=== PATIENT | female | born 1960 | race Caucasian/White ===

== ENCOUNTER 2022-11-08 10:23 | Day surgery (SDC) | payer BC, SELFPAY ==
[2022-11-08 10:52] VITALS: BP 143/83; PULSE 74; RESP 16; TEMP 36.3; O2SAT 99
--- NOTE | 2022-11-08 11:00 | W.ANESPRE ---
General Info Date of Service Date Performed: 11/08/22 Height: 5 ft 4 in Weight: 78.7 kg Body Mass Index (BMI): 29.7 Surgical Procedure: Operation Date: 11/08/22 12:10 Proposed Procedure Side Surgeon p Cataract Extraction with IOL Implant Left Long Hobson MD Meds Allergies and Home Medications Allergies Allergy/AdvReac Type Severity Reaction Status Date / Time codeine AdvReac Intermediate Other (See Verified 11/08/22 10:44 Comment) diclofenac AdvReac Intermediate Other (See Verified 11/08/22 10:44 Comment) zolpidem AdvReac Intermediate Other (See Verified 11/08/22 10:44 Comment) Home Medication Medication Instructions Recorded acetaminophen 325 mg tablet 325 mg PO Q4H PRN 11/07/22 cholecalciferol (vitamin D3) 50 50 mcg PO DAILY 11/07/22 mcg (2,000 unit) capsule (Vitamin D3) diphenhydramine 12.5 2 tab PO Q4H PRN 11/07/22 mg-acetaminophen 325 mg tablet famotidine 20 mg tablet 20 mg PO DAILY 11/07/22 meloxicam 15 mg tablet 15 mg PO DAILY 11/07/22 multivitamin 1 tab PO DAILY 11/07/22 Current Visit Medications: Current Medications Generic Name Dose Route Start Last Admin Trade Name Freq PRN Reason Stop Dose Admin Acetaminophen 1,000 mg 11/08/22 06:00 Acetaminophen 500 Mg Tab PO Q4H PRN PRN Miscellaneous Medication 0 ml 11/08/22 06:00 Prednisolone 1%, Moxifloxacin 0.5%, Nepafenac 0.1% 5ml Btl OS DIRECTED [facility] Miscellaneous Medication 0 ml 11/08/22 06:00 Tropicam./Phenyleph. (1/2.5%) 5 Ml Btl OS DIRECTED SHRADDHA Tetracaine HCl 0 ml 11/08/22 06:00 Tetracaine 0.5% 4 Ml Btl OS DIRECTED SHRADDHA PFSH Active Problems Active Problems: Problem Status Onset Code LPRD (laryngopharyngeal reflux disease) K21.9 Nuclear sclerotic cataract of left eye H25.12 Posterior subcapsular age-related cataract of left eye H25.042 Medical History Medical History Chronic wrist pain Degenerative joint disease of spinal facet joint Dyspepsia Globus sensation Mild vitamin D deficiency Ovarian cyst Shoulder bursitis Spondylarthritis Surgical History Surgical History Hx of bilateral salpingo-oophorectomy Hx of colonoscopy Tobacco Smoking/Tobacco Use Status: Never Alcohol Alcohol Intake: current Alcohol intake frequency: 0-2 drinks per day Substance Use Substance use: Never Substance use type: does not use Vital Signs and Lab Results Vital Signs Most Recent Vital Signs in EMR: Most Recent Vital Signs Temp Pulse Resp BP Pulse Ox 36.3 C L 74 16 143/83 H 99 11/08/22 10:52 11/08/22 10:52 11/08/22 10:52 11/08/22 10:52 11/08/22 10:52 Lab Results Blood Type / Crossmatch: No Data to Display Complete Blood Count: No Data to Display Complete Metabolic Panel: No Data to Display Liver Function Panel: No Data to Display Coagulation Panel: No Data to Display Cardiac Panel: No Data to Display Arterial Blood Gas: No Data to Display Venous Blood Gas: No Data to Display Pancreas Panel: No Data to Display Thyroid Panel: No Data to Display Infectious Disease: No Data to Display Blood Cultures: No Data to Display Toxicology Panel: No Data to Display Anesthesia Assessment and Plan Anesthesia History Personal History: No History of Anesthesia Complications Family History: No Family History of Anesthesia Complications Exercise Tolerance Exercise Tolerance: Metabolic Equivalents>4 Pertinent Negatives Pertinent Negatives: No Symptoms of GERD ( COntrolled w med) Cardiac & Pulmonary Exam Cardiac Exam: Normal S1/S2 Heart Sounds Pulmonary Exam: Clear Bilateral Breath Sounds Implantable Cardiac Device Does patient have a Pacemaker or an ICD?: No Airway Exam Known Difficult Airway: No Mallampati Class: 1 Mouth Opening: Normal (> 3cm) Thyromental Distance: Greater than 3 cm Neck Range of Motion: Full ROM Neck Circumference: Normal Teeth Condition: Normal Dentition ASA Classification ASA Score: ASA 2 Emergency Case?: No NPO Status NPO Status: NPO Clears >2 hours, Solids >8 hours Anesthesia Plan Resuscitation Status: Full Code Anesthesia Technique: MAC Anesthesia Airway Planned: Natural Airway Monitors Used: Standard Monitors Preoperative Comments:: Requests mksvetlana
[2022-11-08 11:03] VITALS: BMI 29.7
[2022-11-08] MEDS: Tropicam./Phenyleph. (1/2.5%) 5 ML BTL OS ×3 (11:05→11:17)
[2022-11-08] MEDS: Povidone-Iodine Ophth 30 ML BTL (11:39)
[2022-11-08] MEDS: Tetracaine 0.5% 4 ML BTL OS (11:39)
[2022-11-08] MEDS: Lidocaine 2% Jelly 6 ML SYR (11:40)
[2022-11-08] MEDS: Duovisc Viscoelastic System EACH 1 EACH (11:48)
[2022-11-08] MEDS: Balanced Salt Soln.-PLUS 500 ML BAG (11:48)
[2022-11-08] MEDS: Lidocaine 1% Pres-Free 5 ML VIAL (11:50)
[2022-11-08] MEDS: Trypan Blue 0.06% 0.5 ML SYR (11:50)
--- NOTE | 2022-11-08 12:18 | W.PM.DSUDISC ---
Date of service: 11/08/22 Time of Service: 12:19 Discharge Plan Disposition Patient Disposition: Home Discharge Details Attending Provider: Long Hobson Primary Care Provider: Nirali Ma Home Meds and New Rx's Prescriptions: No Action multivitamin Tablet 1 tab PO DAILY acetaminophen 325 mg Tablet 325 mg PO Q4H PRN meloxicam 15 mg Tablet 15 mg PO DAILY famotidine 20 mg Tablet 20 mg PO DAILY cholecalciferol (vitamin D3) [Vitamin D3] 50 mcg (2,000 unit) Capsule 50 mcg PO DAILY diphenhydramine-acetaminophen 12.5-325 mg Tablet 2 tab PO Q4H PRN Discharge Instructions Stand Alone Forms: Post-op Topical Cataract, Rolando An (DSU) Discharge Orders Discharge Orders: Discharge Order (Routine); Ordered 11/08/22 Ordered By: Long Hobson DS: Diagnosis Discharge Diagnosis (1) Nuclear sclerotic cataract of left eye: Status: Resolved (2) Posterior subcapsular age-related cataract of left eye: Status: Resolved
--- NOTE | 2022-11-08 12:19 | W.PM.OP ---
Date of service: 11/08/22 Time of Service: 12:19 Operative Note Operative Note DATE OF PROCEDURE: 11/08/22 POST-OP DIAGNOSIS: same PROCEDURE: Cataract extraction using phacoemulsification with toric intraocular lens implant, left eye SURGEON: Long Hobson ANESTHESIA TYPE: Local By Surgeon and MAC Refer to Anesthesia Record PATHOLOGY: none sent COMPLICATIONS: None Patient was transported to: same day Patient's condition: stable Implants: Sam [employer] Sam Vision Tecnis Toric Intraocular Lens Indications: Progressive decreased vision due to cataract, left eye, with corneal astigmatism Procedure Description: CATARACT SURGERY OPERATIVE REPORT PREOPERATIVE DIAGNOSIS: Nuclear/posterior subcapsular cataract, dense, left eye Poor red reflex, left eye secondary to cataract POSTOPERATIVE DIAGNOSIS: Same OPERATION: Cataract extraction using phacoemulsification with posterior chamber toric intraocular lens implant, left eye. IOL: IOL Intravenous Therapy Nurse/Model: [employer] Vision Tecnis Toric [id number] IOL Power: + 22.5 diopters sphere, 2.25 cylinder IOL Serial Number: [id number] Optic Diameter: 6.0mm Haptic/Overall Diameter: 13.00mm PHACO INFO: Shree [employer] Translateurion Vision System with OZil and Active Fluidics Cumulative Dispersed Energy (CDE): 5.62 seconds SURGEON: Long Hobson MD, COLETTE ANESTHESIA: Monitored Anesthesia Care (MAC), with local sub-tenon's anesthetic infiltration COMPLICATIONS: None SPECIMENS: None INDICATIONS FOR PROCEDURE: The patient is a 62-year-old lady with history of progressive decreased vision and her left eye secondary to the development of significant posterior subcapsular cataract with more moderate nuclear cataract. She has a history of oblique a stigmatism as well. She is significantly symptomatic from cataract that she desires cataract surgery and attempt to improve and maximize her vision, and desires to proceed with a toric intraocular lens to minimize postoperative refractive error. PROCEDURE: The correct surgical eye was identified and marked as the left eye and the pupil was dilated in the preoperative area using mydriatics and cycloplegics. The dilated pupil size was 7.0 mm. With the patient in the seated position, topical anesthetic was applied and a surgical marker was used to silvia the limbus at 6:00. A Surgilum Robomarker was then used to silvia the 0/180 degree reference axis. Oral sedation was administered in the form of an Imprimis MKO Melt (midazolam 3mg/ketamine 25mg/ondansetron 2mg). The patient elected to proceed without oral sedation. The patient was brought to the operating room where cardiopulmonary monitoring was instituted and surgical time-out was performed, confirming the correct operative eye and IOL power. Topical anesthesia was administered and ophthalmic povidone-iodine 5% was instilled into the conjunctival fornices. Lidocaine gel was applied to the cornea and the chinyere-ocular area was prepped with Betadine 10% solution and draped in the usual sterile fashion for intraocular surgery, including an aperture drape. A Tegaderm transparent film dressing was cut in half and used to cover the lashes and lid margins. Care was taken to sequester the lashes and lid margins under the Tegaderm dressing. A lid speculum was placed between the lids of the operative eye and the [employer] operating microscope was maneuvered into position. Conner scissors were then used to make a conjunctival buttonhole approximately 6mm posterior to the limbus in the inferonasal quadrant. Blunt dissection was carried out to expose bare sclera, and a blunt-tipped sub-tenon?s anesthesia cannula was introduced and passed posteriorly along the globe where non-preserved plain lidocaine was injected into posterior sub-Tenon?s space. A corneal ring gauge and axis marker were then used to silvia the 34 degree position for the main phaco incision, and the 124/304 degree axis for alignment of the toric IOL. A sideport knife was used to make a paracentesis port superior nasally. VisionBlue was then injected into the anterior chamber and allowed to sit for 10 to 12 seconds.. Intraocular phenylephrine/lidocaine was injected into the anterior chamber. The anterior chamber was then filled with viscoelastic. A keratome knife was used to create a half-thickness groove at the limbus and then to construct a three-plane near-clear corneal tunnel extending 2.0mm into clear cornea at the 34 degree axis. . A flap was raised on the anterior capsule and capsulorhexis forceps were used to complete a continuous curvilinear capsulorhexis of 5.0 mm. Balanced salt solution was then used to perform cortical cleaving hydrodissection and nuclear hydrodelineation until the lens could be freely rotated within the capsular bag. The lens nucleus was then disassembled and removed within the capsular bag and iris plane using phacoemulsification. Residual cortical material was removed using the 45-degree angled silicone I/A tip with 0.3mm port. The posterior capsule was carefully polished to remove as much residual lens epithelial cells as safely possible. The capsular bag was then inflated and the anterior chamber deepened with viscoelastic. The lens implant described above was inserted into the capsular bag using the HARLE[employer] [place] Injector. A Kuglen hook was used to dial the IOL into position, about 10 degrees counterclockwise of its final alignment. Residual viscoelastic was then removed first from posterior to the IOL, then from the anterior chamber using the I/A handpiece. The I/A handpiece was then used to dial the IOL to the target axis. The lens implant was noted to center nicely within the capsular bag, with the toric IOL chi aligned at the 124/304 degree axis. The incisions were stromally hydrated, and the anterior chamber was reformed using BSS. Then 0.5cc of moxifloxacin 1.0mg/ml were injected into the capsular bag and anterior chamber. The incisions were checked with a Weck spear and found to be secure. Several drops of ophthalmic povidone-iodine 5% were then applied to the eye followed by two drops of Imprimis combination prednisolone/moxifloxacin/nepafenac solution. The drapes were removed and a clear plastic protective eye shield was placed over the eye. The patient was then returned to Same Day Surgery in stable condition.
[2022-11-08 12:20] VITALS: BP 136/92; PULSE 77; RESP 16; TEMP 36.3; O2SAT 99
--- NOTE | 2022-11-08 12:29 | W.ANESPOSTOP ---
Postoperative Evaluation Date, Time and Location Date Performed: 11/08/22 Time Performed: 11:25 Patient Location: Day Surgery Unit Vital Signs Most Recent Imported Vital Signs: Most Recent Vital Signs Temp Pulse Resp BP Pulse Ox 36.3 C L 77 16 136/92 H 99 11/08/22 12:20 11/08/22 12:20 11/08/22 12:20 11/08/22 12:20 11/08/22 12:20 Pain Score Most Recent Pain Score: Most Recent Pain Score Pain Level 0 11/08/22 12:20 Assessment Mental Status: Awake (Alert & Oriented to Patient Baseline) Airway and Respiratory Function: Patent airway with normal (patient baseline) respiratory exam Cardiovascular Function: Hemodynamically Stable Hydration Status: Adequately Hydrated Nausea & Vomiting: No Nausea or Vomiting Pain: Pt. Denies Any Pain Peripheral Nerve Block: Patient did not receive a nerve block
[2022-11-08 12:42] VITALS: BP 138/83; PULSE 87; RESP 16; TEMP 36.8; O2SAT 98
== END 2022-11-08 12:46 | disposition home or self-care (01) ==
LOC: SUR 10:24
PROVIDERS: PCP Family Medicine; Visit Provider Ophthalmology
PROC: (CPT 66984; principal; 2022-11-08 12:00)
DX: H25.042 Posterior subcapsular polar age-related cataract, left eye (principal); H52.202 Unspecified astigmatism, left eye
CPT/HCPCS: 66984; V2632

== ENCOUNTER 2022-11-22 10:21 | Day surgery (SDC) | payer BC, SELFPAY ==
[2022-11-22 10:39] VITALS: BP 145/79; PULSE 66; RESP 16; TEMP 36.6; O2SAT 96
--- NOTE | 2022-11-22 10:48 | W.ANESPRE ---
General Info Date of Service Date Performed: 11/22/22 Height: 5 ft 4 in Weight: 79.379 kg Body Mass Index (BMI): 30.0 Surgical Procedure: Operation Date: 11/22/22 12:10 Proposed Procedure Side Surgeon p Cataract Extraction with IOL Implant Right Long Hobson MD Meds Allergies and Home Medications Allergies Allergy/AdvReac Type Severity Reaction Status Date / Time codeine AdvReac Intermediate Other (See Verified 11/22/22 10:37 Comment) diclofenac AdvReac Intermediate Other (See Verified 11/22/22 10:37 Comment) zolpidem AdvReac Intermediate Other (See Verified 11/22/22 10:37 Comment) Home Medication Medication Instructions Recorded acetaminophen 325 mg tablet 325 mg PO Q4H PRN 11/07/22 cholecalciferol (vitamin D3) 50 50 mcg PO DAILY 11/07/22 mcg (2,000 unit) capsule (Vitamin D3) diphenhydramine 12.5 2 tab PO Q4H PRN 11/07/22 mg-acetaminophen 325 mg tablet famotidine 20 mg tablet 20 mg PO DAILY 11/07/22 meloxicam 15 mg tablet 15 mg PO DAILY 11/07/22 multivitamin 1 tab PO DAILY 11/07/22 vitamin B complex 1 cap PO DAILY 11/21/22 Current Visit Medications: Current Medications Generic Name Dose Route Start Last Admin Trade Name Freq PRN Reason Stop Dose Admin Acetaminophen 1,000 mg 11/22/22 06:00 Acetaminophen 500 Mg Tab PO Q4H PRN PRN Miscellaneous Medication 0 ml 11/22/22 06:00 Prednisolone 1%, Moxifloxacin 0.5%, Nepafenac 0.1% 5ml Btl OD DIRECTED SHRADDHA Miscellaneous Medication 0 ml 11/22/22 06:00 Tropicam./Phenyleph. 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 Dyspepsia Globus sensation Mild vitamin D deficiency Ovarian cyst Shoulder bursitis Spondylarthritis Surgical History Surgical History (Updated 11/22/22 @ 10:37 by Iona Santiago) Hx of bilateral salpingo-oophorectomy Hx of cataract removal with insertion of prosthetic lens Hx of colonoscopy Tobacco Smoking/Tobacco Use Status: Never Alcohol Alcohol Intake: current Alcohol intake frequency: 0-2 drinks per day Substance Use Substance use: Never Substance use type: does not use Vital Signs and Lab Results Vital Signs Most Recent Vital Signs in EMR: Most Recent Vital Signs Temp Pulse Resp BP Pulse Ox 36.6 C 66 16 145/79 H 96 11/22/22 10:39 11/22/22 10:39 11/22/22 10:39 11/22/22 10:39 11/22/22 10:39 Lab Results Blood Type / Crossmatch: No Data to Display Complete Blood Count: No Data to Display Complete Metabolic Panel: No Data to Display Liver Function Panel: No Data to Display Coagulation Panel: No Data to Display Cardiac Panel: No Data to Display Arterial Blood Gas: No Data to Display Venous Blood Gas: No Data to Display Pancreas Panel: No Data to Display Thyroid Panel: No Data to Display Infectious Disease: No Data to Display Blood Cultures: No Data to Display Toxicology Panel: No Data to Display Anesthesia Assessment and Plan Anesthesia History Personal History: No History of Anesthesia Complications Family History: No Family History of Anesthesia Complications Exercise Tolerance Exercise Tolerance: Metabolic Equivalents>4 Pertinent Negatives Pertinent Negatives: No Symptoms of GERD Cardiac & Pulmonary Exam Cardiac Exam: Normal S1/S2 Heart Sounds Pulmonary Exam: Clear Bilateral Breath Sounds Implantable Cardiac Device Does patient have a Pacemaker or an ICD?: No Airway Exam Known Difficult Airway: No Mallampati Class: 1 Mouth Opening: Normal (> 3cm) Thyromental Distance: Greater than 3 cm Neck Range of Motion: Full ROM Neck Circumference: Normal Teeth Condition: Normal Dentition ASA Classification ASA Score: ASA 2 Emergency Case?: No NPO Status NPO Status: NPO Clears >2 hours, Solids >8 hours Anesthesia Plan Resuscitation Status: Full Code Anesthesia Technique: MAC Anesthesia Airway Planned: Natural Airway Monitors Used: Standard Monitors Preoperative Comments:: Wants MKO as before
[2022-11-22] MEDS: Tropicam./Phenyleph. (1/2.5%) 5 ML BTL OD ×3 (10:54→11:10)
[2022-11-22] MEDS: Tetracaine 0.5% 4 ML BTL OD (11:25)
[2022-11-22] MEDS: Balanced Salt Soln.-PLUS 500 ML BAG (11:30)
[2022-11-22] MEDS: Duovisc Viscoelastic System EACH 1 EACH (11:30)
[2022-11-22] MEDS: Lidocaine 2% Jelly 6 ML SYR (11:31)
[2022-11-22] MEDS: Lidocaine 1% Pres-Free 5 ML VIAL (11:32)
[2022-11-22] MEDS: Povidone-Iodine Ophth 30 ML BTL (11:32)
[2022-11-22 11:54] VITALS: BP 133/78; PULSE 68; RESP 16; TEMP 36.3; O2SAT 95
--- NOTE | 2022-11-22 11:59 | W.PM.DSUDISC ---
Date of service: 11/22/22 Time of Service: 11:59 Discharge Plan Disposition Patient Disposition: Home Discharge Details Attending Provider: Long Hobson Primary Care Provider: Nirali Ma Home Meds and New Rx's Prescriptions: No Action vitamin B complex [B Complex] Capsule 1 cap PO DAILY multivitamin Tablet 1 tab PO DAILY acetaminophen 325 mg Tablet 325 mg PO Q4H PRN meloxicam 15 mg Tablet 15 mg PO DAILY famotidine 20 mg Tablet 20 mg PO DAILY cholecalciferol (vitamin D3) [Vitamin D3] 50 mcg (2,000 unit) Capsule 50 mcg PO DAILY diphenhydramine-acetaminophen 12.5-325 mg Tablet 2 tab PO Q4H PRN Discharge Instructions Stand Alone Forms: Post-op Topical Cataract, Rolando An (DSU) Discharge Orders Discharge Orders: Discharge Order (Routine); Ordered 11/22/22 Ordered By: Long Hobson DS: Diagnosis Discharge Diagnosis (1) Nuclear sclerotic cataract of right eye: Status: Resolved (2) Cortical cataract of right eye: Status: Resolved
--- NOTE | 2022-11-22 12:04 | W.PM.OP ---
Date of service: 11/22/22 Time of Service: 12:04 Operative Note Operative Note DATE OF PROCEDURE: 11/22/22 PRE-OP DIAGNOSIS: Nuclear/posterior subcapsular cataract, right eye Oblique astigmatism, right eye POST-OP DIAGNOSIS: same PROCEDURE: Cataract extraction using phacoemulsification with toric intraocular lens implant, right eye SURGEON: Long Hobson Refer to Anesthesia Record PATHOLOGY: none sent COMPLICATIONS: None Patient was transported to: same day Patient's condition: stable Implants: [employer] Tecnis Eyhance Toric Intraocular Lens Indications: Progressive decreased vision due to cataract, right eye, with corneal astigmatism Procedure Description: CATARACT SURGERY OPERATIVE REPORT PREOPERATIVE DIAGNOSIS: Nuclear/posterior subcapsular cataract, right eye Oblique astigmatism, right eye POSTOPERATIVE DIAGNOSIS: Same OPERATION: Cataract extraction using phacoemulsification with posterior chamber toric intraocular lens implant, right eye. IOL: IOL Computer Repair Instructor/Model: AMSC Tecnis Eyhance Toric [id number] IOL Power: + 22.5 diopters sphere, + 5.25 cylinder IOL Serial Number: [id number] Optic Diameter: 6.0mm Haptic/Overall Diameter: 13.00mm PHACO INFO: Shree WiMi5urion Vision System with OZil and Active Fluidics Cumulative Dispersed Energy (CDE): 2.04 seconds SURGEON: Long Hobson MD, COLETTE ANESTHESIA: Monitored Anesthesia Care (MAC), with local sub-tenon's anesthetic infiltration COMPLICATIONS: None SPECIMENS: None INDICATIONS FOR PROCEDURE: The patient is a 62-year-old lady with history of diminished visual acuity in both eyes secondary to the development of significant bilateral nuclear/posterior subcapsular cataract. She also has a significant amount of oblique a stigmatism. The option of cataract surgery was offered to the patient and she felt she was symptomatic enough that she wished to proceed with cataract surgery with implantation of a toric intraocular lens implant to minimize postoperative a stigmatism. She has already undergone cataract surgery in the left eye and is doing well postoperatively. She now presents for surgery in the right eye. PROCEDURE: The correct surgical eye was identified and marked as the right eye and the pupil was dilated in the preoperative area using mydriatics and cycloplegics. The dilated pupil size was 8.0 mm. With the patient in the seated position, topical anesthetic was applied and a surgical marker was used to silvia the limbus at 6:00. A Surgilum Robomarker was then used to silvia the 0/180 degree reference axis. Oral sedation was administered in the form of an Imprimis MKO Melt (midazolam 3mg/ketamine 25mg/ondansetron 2mg). The patient was brought to the operating room where cardiopulmonary monitoring was instituted and surgical time-out was performed, confirming the correct operative eye and IOL power. Topical anesthesia was administered and ophthalmic povidone-iodine 5% was instilled into the conjunctival fornices. Lidocaine gel was applied to the cornea and the chinyere-ocular area was prepped with Betadine 10% solution and draped in the usual sterile fashion for intraocular surgery, including an aperture drape. A Tegaderm transparent film dressing was cut in half and used to cover the lashes and lid margins. Care was taken to sequester the lashes and lid margins under the Tegaderm dressing. A lid speculum was placed between the lids of the operative eye and the [employer] operating microscope was maneuvered into position. Conner scissors were then used to make a conjunctival buttonhole approximately 6mm posterior to the limbus in the inferonasal quadrant. Blunt dissection was carried out to expose bare sclera, and a blunt-tipped sub-tenon?s anesthesia cannula was introduced and passed posteriorly along the globe where non-preserved plain lidocaine was injected into posterior sub-Tenon?s space. A corneal ring gauge and axis marker were then used to silvia the 127 degree position for the main phaco incision.and the 37/217 degree axis for alignment of the toric IOL. A sideport knife was used to make a paracentesis port at the 7:00 postion and intraocular phenylephrine/lidocaine was injected into the anterior chamber. The anterior chamber was filled with viscoelastic.. A keratome knife was used to create a half-thickness groove at the limbus and then to construct a three-plane near-clear corneal tunnel extending 2.0mm into clear cornea at the 127 degree axis. . A flap was raised on the anterior capsule and capsulorhexis forceps were used to complete a continuous curvilinear capsulorhexis of 5.0 mm. Balanced salt solution was then used to perform cortical cleaving hydrodissection and nuclear hydrodelineation until the lens could be freely rotated within the capsular bag. The lens nucleus was then disassembled and removed within the capsular bag and iris plane using phacoemulsification. Residual cortical material was removed using the 45-degree angled silicone I/A tip with 0.3mm port. The posterior capsule was carefully polished to remove as much residual lens epithelial cells as safely possible. The capsular bag was then inflated and the anterior chamber deepened with viscoelastic. The lens implant described above was inserted into the capsular bag using IOL injector. A Kuglen hook was used to dial the IOL into position, about 10 degrees counterclockwise of its final alignment. Residual viscoelastic was then removed first from posterior to the IOL, then from the anterior chamber using the I/A handpiece. The I/A handpiece was then used to dial the IOL to the target axis. The lens implant was noted to center nicely within the capsular bag, with the toric IOL chi aligned at the 37/217 degree axis. The incisions were stromally hydrated, and the anterior chamber was reformed using BSS. Then 0.5cc of moxifloxacin 1.0mg/ml were injected into the capsular bag and anterior chamber. The incisions were checked with a Weck spear and found to be secure. Several drops of ophthalmic povidone-iodine 5% were then applied to the eye followed by two drops of Imprimis combination gatifloxacin/dexamethasone solution. The drapes were removed and a clear plastic protective eye shield was placed over the eye. The patient was then returned to Same Day Surgery in stable condition.
[2022-11-22 12:20] VITALS: BP 126/84; PULSE 73; RESP 16; TEMP 36.8; O2SAT 97
--- NOTE | 2022-11-22 12:27 | W.ANESPOSTOP ---
Postoperative Evaluation Date, Time and Location Date Performed: 11/22/22 Time Performed: 12:27 Patient Location: Day Surgery Unit Vital Signs Most Recent Imported Vital Signs: Most Recent Vital Signs Temp Pulse Resp BP Pulse Ox 36.3 C L 68 16 133/78 95 11/22/22 11:54 11/22/22 11:54 11/22/22 11:54 11/22/22 11:54 11/22/22 11:54 Pain Score Most Recent Pain Score: Most Recent Pain Score Pain Level 0 11/22/22 11:54 Assessment Mental Status: Awake (Alert & Oriented to Patient Baseline) Airway and Respiratory Function: Patent airway with normal (patient baseline) respiratory exam Cardiovascular Function: Hemodynamically Stable Hydration Status: Adequately Hydrated Nausea & Vomiting: No Nausea or Vomiting Pain: Pt. Denies Any Pain Peripheral Nerve Block: Patient did not receive a nerve block
== END 2022-11-22 12:26 | disposition home or self-care (01) ==
LOC: SUR 10:21
PROVIDERS: PCP Family Medicine; Visit Provider Ophthalmology
PROC: (CPT 66984; principal; 2022-11-22 12:00)
DX: H25.11 Age-related nuclear cataract, right eye (principal); H52.201 Unspecified astigmatism, right eye
CPT/HCPCS: 66984; V2632